=== PATIENT | male | born 1960 | race African-American/Black ===

== ENCOUNTER → 2016-12-04 | Outpatient (CLI) | payer BC ==
[~2016-12-04] MED LIST: LIDOCAINE 1% 30 ML SDV ONE; NA BICARBONATE 50 MEQ/50 ML VIAL ONE
== END ==
LOC: FIMAGING 11:47
PROVIDERS: ATTEND Internal Medicine Endocrinology, Diabetes & Metabolism
PROC: 0G9G3ZZ Drainage of Left Thyroid Gland Lobe, Percutaneous Approach (ICD-10-PCS; principal; 2016-12-04)
DX: E04.8 Other specified nontoxic goiter (principal)

== ENCOUNTER 2017-03-04 05:56 | Day surgery (SDC) | payer BC ==
[2017-03-04] MEDS ORDERED: LIDOCAINE 1% 2 ML INJ ONE (06:12)
[2017-03-04] MEDS ORDERED: BUPIVACAINE 0.5% 30 ML SDV ONE (06:30)
[2017-03-04] MEDS ORDERED: CALCIUM CHLORIDE 1 GM/10 ML INJ ONE (06:56)
[2017-03-04] MEDS ORDERED: BUPIVACAINE/EPI 0.5% 30 ML SDV ONE (06:57)
[2017-03-04] MEDS ORDERED: THROMBIN (BOVINE) 5,000 UNIT VIAL TP ONE (06:58)
[2017-03-04] MEDS ORDERED: PROPOFOL 200 MG/20 ML VIAL ONE ×3 (06:58→08:51)
[2017-03-04] MEDS ORDERED: ACETAMINOPHEN 500 MG TAB PO ONE (07:00)
[2017-03-04] MEDS ORDERED: ceFAZolin 2 GM/DEXTROSE 100 ML IV ONE (07:00)
[2017-03-04] MEDS ORDERED: fentaNYL 100 MCG/2 ML INJ ONE (07:07)
[2017-03-04] MEDS ORDERED: MIDAZOLAM 2 MG/2 ML VIAL ONE (07:11)
--- NOTE | 2017-03-04 12:10 | GOP ---
[f rep st] OPERATIVE REPORT DATE OF OPERATION: 03/04/2017 SURGEON: Katina Saul MD PARTS COUNTERMAN: SHAYE HaywoodA, LSA, whose presence was medically necessary. ANESTHESIA: Endotracheal intubation plus scalene nerve block per surgeon's request. PREOPERATIVE DIAGNOSIS: Left shoulder impingement syndrome with rotator cuff tear. POSTOPERATIVE DIAGNOSIS: Left shoulder impingement syndrome with rotator cuff tear, with biceps ten dinopathy and labral tear. PROCEDURE PERFORMED: Open left biceps tenodesis with left shoulder scope with rotator cuff repair x 3, subacromial decompression, distal clavicle excision, debridement of labrum, rotator cuff, subacro mial bursa, and biceps stump. FINDINGS: INDICATIONS: This is a 56-year-old male with a long history of left shoulder pain worsening with us e, with time. He is noticing when doing martial arts he is developing weakness, particularly to ext ernal rotation. MRI exam reveals anterior acromial curve and hook along with distal clavicular infe rior spur and a large rotator cuff tear. He wishes to have surgery in order to resolve the problem. DESCRIPTION OF PROCEDURE: Patient brought to the operating room after the left side had been identi fied as the correct side by the patient, nurse, and physician. Once in the operating room, he was g iven a scalene block on the left side. He was then placed under anesthesia using endotracheal intub ation. Once asleep, he was placed in a beach chair position with the left upper extremity sterilely prepped and draped in the usual fashion using GSI solution. Once prepped and draped, incision was made off the posterolateral corner of the acromion with the camera introduced without difficulty. I nspection of the joint revealed the biceps to be split in half and frayed within the intra-articular portion of the shoulder, therefore, camera was removed. Attention was turned to the anterior porti on of the shoulder. The biceps tendon was able to be palpated near the deltopectoral junction. A 5 cm incision was made directly over that area with sharp dissection and carried down through the ski n and subcutaneous layers. Blunt dissection was carried down to the deltopectoral interval with the deltoid retracted laterally. Dissection was carried down onto the biceps sheath, which was opened. The biceps tendon then had #2 FiberWire woven into it. It was cut short, and a guidewire was plac ed in the bicipital groove. The stump had been measured at 5 mm in diameter. Therefore, a 6 mm hol e was drilled through the single cortex of the anterior humerus, and then an [facility] anchor was put into place, tethering the biceps in place. Once completed, the wound was t horoughly irrigated with an antibiotic solution, was closed in layers to include 2-0 Vicryl suture f or the subcutaneous layers and a 3-0 V-Loc suture in a running subcuticular stitch for the skin. Attention was then turned back to the shoulder, with the camera re-introduced into the posterior por tion of the shoulder. Using an in-to-out technique, an anterior portal was made in the superolatera l coracoid process with 6 x 75 mm threaded cannula placed in the anterior portal. An arthroscopic b iter was used to cut through the base of the biceps tendon as it attaches near the labrum, and a gra sper was used to remove the bulk of the biceps tendon from the shoulder. Once completed, 3.5 mm smo oth shaver was used to debride and debulk the extensive tearing of the labrum at its anterior, poste rior, superior, and inferior portions with small loose bodies noted in the inferior pouch. The saurav ps stump was also debrided until achieving a smooth surface. He was noted to have a very large rota tor cuff tear. Once completed inside the shoulder joint, the instruments were removed from the shou lder joint, and using the same portal sites, were reintroduced in the subacromial space. A third in cision was made, 3 cm lateral to the acromial process in line with the posterior cortex of the clavi shahzad with the camera switched to the lateral portal, and, alternatingly, using arthroscopic Bovie tip and shaver, used to remove the abundant amount of bursal tissue and soft tissue from the undersurfa ce of the acromion. He was noted to have a large inferior acromial spur. An acromionizer bur was b rought through the posterior portal and used to remove that spur, until achieving a flat ceiling. A ttention was turned to the distal clavicle, which was noted to have a large inferior spur, and this was also removed using a combination of shaver and bur. Once completed, attention was turned back t o the rotator cuff. A grasper was used to manipulate the rotator cuff. It was noted that it had fa irly free movement, particularly given its large size. Therefore, the camera was moved back to the posterior portal. #2 FiberWire was woven into the anterior limb of the rotator cuff tear. It was b rought onto an area of eburnated bone that had been burred at the area of the greater tuberosity clarice tprint. The anterior limb was attached onto a [place] anchor that was driven into the bone, pulling the anterior half onto the greater tuberosity. Another set of #2 FiberWire was woven into the post erior portion of the rotator cuff and pulled anteriorly and attached onto the greater tuberosity, br inging the rotator cuff onto the eburnated bone footprint, and then a [id number] repair was perfor med with suture passed through the anterior and posterior limbs of the rotator cuff tear and then se wn together. Once completed, all instruments were removed from the subacromial space with 30 cc of Marcaine infused in the subacromial space. The 3 portal sites were closed using 3-0 nylon suture in a [id number]-li-xlneb type stitch with plasma gel then placed in the subacromial space. The bicipital wound was dressed with Steri-Strips. All wounds were then dressed with Xeroform, 4 x 4's, and Tegad erm. He was completely undraped in the operating room, had a shoulder immobilizer placed on the lef t upper extremity. He was then woken up, extubated, transferred onto a stretcher, and sent to [facility] in good condition. /[id number]/MODL
== END 2017-03-04 11:36 | disposition home or self-care (01) ==
LOC: FSGY 05:56
PROVIDERS: ATTEND Orthopaedic Surgery
PROC: 0LQ24ZZ Repair Left Shoulder Tendon, Percutaneous Endoscopic Approach (ICD-10-PCS; principal; 2017-03-04 07:15)
PROC: 0LM20ZZ Reattachment of Left Shoulder Tendon, Open Approach (ICD-10-PCS; principal; 2017-03-04 07:15)
PROC: 0RBK4ZZ Excision of Left Shoulder Joint, Percutaneous Endoscopic Approach (ICD-10-PCS; principal; 2017-03-04 07:15)
PROC: 0PBB4ZZ Excision of Left Clavicle, Percutaneous Endoscopic Approach (ICD-10-PCS; principal; 2017-03-04 07:15)
PROC: 0MB24ZZ Excision of Left Shoulder Bursa and Ligament, Percutaneous Endoscopic Approach (ICD-10-PCS; principal; 2017-03-04 07:15)
DX: M75.42 Impingement syndrome of left shoulder (principal); M75.102 Unspecified rotator cuff tear or rupture of left shoulder, not specified as traumatic; S43.432D Superior glenoid labrum lesion of left shoulder, subsequent encounter; M75.22 Bicipital tendinitis, left shoulder; M25.512 Pain in left shoulder
CPT/HCPCS: C1713; J0171; J0690; J2250; J2704; J3010